=== PATIENT | male | born 1990 | race Two or more races ===

== ENCOUNTER 2019-10-14 06:56 | Emergency (ER) | payer MEDICAID ==
[~2019-10-14] VITALS: Ht 174 cm; Wt 70.5 kg
[2019-10-14] MEDS ORDERED: IBUPROFEN 400 MG TABLET PO ONE (08:15)
[2019-10-14 09:44] VITALS: BP 123/70
== END 2019-10-14 09:49 | disposition home or self-care (01) ==
LOC: EMS 07:31
DX: S50.01XA Contusion of right elbow, initial encounter (principal); W50.0XXA Accidental hit or strike by another person, initial encounter; Y93.89 Activity, other specified; Y92.89 Other specified places as the place of occurrence of the external cause; Y99.8 Other external cause status